=== PATIENT | female | born 1995 | race Caucasian/White ===

== ENCOUNTER 2018-04-09 23:32 | Emergency (ER) | payer MEDICAID ==
[~2018-04-09] VITALS: Ht 152.4 cm; Wt 89.9 kg
[2018-04-09 23:43] VITALS: Ht 152.4 cm; Wt 89.9 kg
[2018-04-10 00:58] LABS: UA SPECIFIC GRAVITY >=1.030 (1.005-1.035); microscopic required? YES; urine erythrocyte 3+ (NEGATIVE)
[2018-04-10 02:25] VITALS: BP 115/64
== END 2018-04-10 02:25 | disposition home or self-care (01) ==
LOC: ED 23:32
PROVIDERS: Emergency Medicine
DX: R10.30 Lower abdominal pain, unspecified (principal); M54.5 Low back pain
CPT/HCPCS: J1885

== ENCOUNTER 2019-12-14 17:46 | Emergency (ER) | payer OTHER ==
[~2019-12-14] VITALS: Ht 152.4 cm; Wt 87.1 kg
[2019-12-14 18:06] VITALS: BP 116/69; Ht 152.4 cm; Wt 87.1 kg
== END 2019-12-14 21:22 | disposition home or self-care (01) ==
LOC: ED 17:46
DX: J11.1 Influenza due to unidentified influenza virus with other respiratory manifestations (principal)
CPT/HCPCS: 87804